=== PATIENT | male | born 1990 | race Caucasian/White ===

== ENCOUNTER 2018-12-21 19:54 | Emergency (ER) | payer MEDICARE, OTHER ==
[2018-12-21] MEDS ORDERED: DIAZEPAM 5 MG TABLET PO ONE (20:12)
[2018-12-21] MEDS ORDERED: ACETAMINOPHEN 325 MG TAB PO ONE (20:13)
--- NOTE | 2018-12-21 20:14 | Emergency Department Record ---
Anxiety - General Chief Complaint: Anxiety Stated Complaint: CHEST PAIN Time Seen by Provider: 12/21/18 20:03 Source: Patient Mode of Arrival: EMS Limitations: No limitations - History of Present Illness Initial Comments: The patient is here due to becoming very anxious today. He normally lives at a [facility] home and was visiting his grandmother but did not take any of his anxiety meds with him. He became very anxious due to issues at his [facility] home with a worker there. Due to not having his medicines he developed palpitations, anxiety and became very upset and called 911. The patient denies any AP, CP, SOB , HENDRICKS or fever. He is asking for Valium for his anxiety. The patient has a long hx of anxiety similar to this in the past. MD Complaint: Anxiety Onset/Timin -: Days(s) Symptoms: Chest pain Place: Home Previous History of Same: Yes Severity: Moderate Quality: Constant, Similar to prior episodes Provoking factors: Emotional stress, Other Improves With: Medication Worsens With: Nothing - Related Data Home Medications: Home Medications Medication Instructions Recorded Confirmed Last Taken Clonazepam [Klonopin] 0.5 mg PO DAILY PRN 12/21/18 12/21/18 Unknown Allergies/Adverse Reactions: Allergies Allergy/AdvReac Type Severity Reaction Status Date / Time lorazepam [From Ativan] Allergy Severe BEHAVIORAL Verified 08/12/16 17:28 CHANGES Penicillins Allergy Intermediate RASH Verified 08/12/16 17:28 lidocaine [From LidoPatch] Allergy RASH Verified 08/12/16 17:28 menthol [From LidoPatch] Allergy RASH Verified 08/12/16 17:28 divalproex sodium AdvReac Intermediate ABDOMINAL Verified 08/12/16 17:28 [From Depakote] PAIN Travel Screening - Travel/Exposure Within Last 30 Days Have you traveled within the last 30 days?: No Review of Systems Constitutional: Denies: Chills, Fever Eyes: Denies: Eye discharge ENT: Denies: Congestion Respiratory: Denies: Cough, Dyspnea Cardiovascular: Denies: Arrhythmia, Chest pain, Dyspnea on exertion Endocrine: Denies: Fatigue Gastrointestinal: Denies: Nausea Genitourinary: Denies: Dysuria Musculoskeletal: Denies: Arthralgia Skin: Denies: Bruising Psychiatric: Reports: Anxiety Past Medical History - SOCIAL HISTORY Smoking Status: Current every day smoker Alcohol Use: None Drug Use: None - RESPIRATORY Hx Respiratory Disorders: Yes Hx Asthma: Yes (as a child) - CARDIOVASCULAR Hx Cardio Disorders: No - NEURO Hx Neuro Disorders: Yes Hx Seizures: Yes (epileptic) - GI Hx GI Disorders: Yes Hx Pancreatitis: Yes - Hx Genitourinary Disorders: No - ENDOCRINE Hx Endocrine Disorders: No - MUSCULOSKELETAL Hx Musculoskeletal Disorders: No - PSYCH Hx Psych Problems: Yes Hx Anxiety: Yes Hx Behavior Problems: Yes Comment:: ptsd - HEMATOLOGY/ONCOLOGY Hx Hematology/Oncology Disorders: No Family Medical History Any Significant Family History?: Yes Hx Cancer: Grandparents Hx Diabetes: Father, Grandparents Hx Heart Disease: Mother, Grandparents Hx HTN: Grandparents Physical Exam - General General Appearance: Alert, Oriented x3, Cooperative, No acute distress - Head Head exam: Atraumatic, Normocephalic, Normal inspection - Eye Eye exam: Normal appearance, PERRL - ENT Throat exam: Normal inspection. negative: Tonsillar erythema, Tonsillar exudate - Neck Neck exam: Normal inspection, Full ROM. negative: Tenderness - Respiratory Respiratory exam: Normal lung sounds bilaterally. negative: Respiratory distress - Cardiovascular Cardiovascular Exam: Regular rate, Normal rhythm, Normal heart sounds. negative : Diastolic murmur, Systolic murmur - GI/Abdominal GI/Abdominal exam: Soft, Normal bowel sounds. negative: Tenderness - Extremities Extremities exam: Normal inspection, Full ROM, Normal capillary refill. negative: Tenderness - Back Back exam: Reports: Normal inspection - Neurological Neurological exam: Alert, Normal gait. negative: Abnormal gait, Motor sensory deficit Course Vital Signs 12/21/18 19:58 Pulse Rate [ 100 H Pulse Ox Probe] Respiratory 24 Rate Blood Pressure 149/80 [Left Arm] Pulse Ox 100 - Reevaluation(s) Reevaluation #1: The patient is doing much better at this time. He is very calm and cooperative and states his anxiety is now gone. He is ready for home. 12/21/18 20:50 Medical Decision Making - Data Complexity MDM Data: EKG Ordered and/or Reviewed - Lab Data Result diagrams: 12/21/18 19:35 12/21/18 19:35 - EKG Data -: EKG Interpreted by Me EKG: No Acute Changes Disposition Disposition: Discharge Clinical Impression: Anxiety Disposition: Home, Self-Care Condition: (2) Stable Instructions: Social Anxiety Disorder (ED) Additional Instructions: Please continue your regular medicines and please see your family doctor next week if not better. Return to the ER for any worsening symptoms. Forms: Patient Portal Access Time of Disposition: 20:50 Quality - Quality Measures Quality Measures: N/A - Blood Pressure Screening View Details: Yes Does Patient Have Any of the Following: No Blood Pressure Classification: Pre-Hypertensive BP Reading Systolic Measurement: 136 Diastolic Measurement: 78 Screening for High Blood Pressure: < Pre-Hypertensive BP, F/U Documented > [ G8950] Pre-Hypertensive Follow-up Interventions: Referral to alternative/primary care provider.
[2018-12-21 20:20] LABS: BASO % 0.2 % (0-6); EOS % 1.4 % (0-6); GRAN % 55.4 % (47-80); HEMATOCRIT 49.2 % (42.0-52.0); HEMOGLOBIN 16.5 gm/dl (14.0-18.0); LYMPH % 33.9 % (16-45); MEAN CELL VOLUME 88.5 fl (81-97); MEAN CORPUSCULAR HEMOGLOBIN 29.7 pg (27-33); MEAN CORPUSCULAR HGB CONC 33.5 g/dl (32-36); MONO % 9.1 % (0-9); PLATELET COUNT 346 K/uL (130-400); RED BLOOD COUNT 5.56 M/uL (4.40-5.70); RED CELL DISTRIBUTION WIDTH 15.4 % (11.5-14.5); WHITE BLOOD COUNT W/O DIFF 13.9 K/uL (4.2-12.2)
[2018-12-21 20:33] LABS: BLOOD UREA NITROGEN 5 mg/dL (6-20); CREATININE 0.7 mg/dL (0.7-1.2); EST GLOMERULAR FILTRATION RATE > 60 mL/min; TOTAL PROTEIN 8.4 g/dL (6.6-8.7)
[2018-12-21 20:35] LABS: GLUCOSE,RANDOM 108 mg/dL (74-109)
[2018-12-21 20:38] LABS: ALB/GLOB RATIO 1.5 (1.1-1.8); ALBUMIN 5.1 g/dL (4.0-5.0); ALKALINE PHOSPHATASE 131 U/L (40-129); ALT/SGPT 20 U/L (<41); AST/SGOT 20 U/L (10.0-50.0)
== END 2018-12-21 20:54 | disposition home or self-care (01) ==
LOC: ER 19:54
DX: F41.9 Anxiety disorder, unspecified (principal); F43.0 Acute stress reaction; F17.210 Nicotine dependence, cigarettes, uncomplicated
CPT/HCPCS: 99284 ×2; 85025; 80053; 84484; 93005; 93010; J3490

== ENCOUNTER 2019-01-20 13:29 | Emergency (ER) | payer MEDICARE, MEDICAID ==
[2019-01-20] MEDS ORDERED: DIAZEPAM 5 MG TABLET PO ONE (14:16)
[2019-01-20 14:34] LABS: BASO % 0.4 % (0-6); EOS % 1.3 % (0-6); GRAN % 64.4 % (47-80); HEMATOCRIT 44.3 % (42.0-52.0); HEMOGLOBIN 14.9 gm/dl (14.0-18.0); LYMPH % 24.7 % (16-45); MEAN CELL VOLUME 87.9 fl (81-97); MEAN CORPUSCULAR HEMOGLOBIN 29.6 pg (27-33); MEAN CORPUSCULAR HGB CONC 33.6 g/dl (32-36); MEAN PLATELET VOLUME 9.5 fl (7.4-10.4); MONO % 9.2 % (0-9); PLATELET COUNT 344 K/uL (130-400); RED BLOOD COUNT 5.04 M/uL (4.40-5.70); RED CELL DISTRIBUTION WIDTH 14.7 % (11.5-14.5); WHITE BLOOD COUNT W/O DIFF 9.7 K/uL (4.2-12.2)
[2019-01-20 14:39] LABS: BARBITURATE SCREEN URINE DETECTED; BENZODIAZEPINE SCREEN URINE DETECTED
[2019-01-20 14:40] LABS: AMPHETAMINE SCREEN URINE NOT DETECTED; COCAINE SCREEN URINE NOT DETECTED; METHADONE SCREEN URINE NOT DETECTED; METHAMPHETAMINE SCREEN NOT DETECTED; OPIATE SCREEN URINE NOT DETECTED; OXYCODONE SCREEN URINE NOT DETECTED; PHENCYCLIDINE SCREEN URINE NOT DETECTED; PROPOXYPHENE SCREEN URINE NOT DETECTED; THC SCREEN URINE NOT DETECTED; TRICYCLIC ANTIDEPRESSANT SCRN NOT DETECTED; URINE APPEARANCE CLEAR; URINE BILIRUBIN NEGATIVE (NEGATIVE); URINE COLOR YELLOW; URINE GLUCOSE (UA) NEGATIVE (NEGATIVE); URINE KETONE NEGATIVE (NEGATIVE)
[2019-01-20 14:41] LABS: URINE BLOOD NEGATIVE (NEGATIVE); URINE LEUKOCYTE ESTERASE NEGATIVE (NEGATIVE); URINE NITRITE NEGATIVE (NEGATIVE); URINE PROTEIN NEGATIVE (NEGATIVE); URINE UROBILINOGEN 0.2 E.U./dL (0.20 - 1.00)
[2019-01-20 14:47] LABS: BLOOD UREA NITROGEN 5 mg/dL (6-20); CREATININE 0.7 mg/dL (0.7-1.2); EST GLOMERULAR FILTRATION RATE > 60 mL/min
[2019-01-20 14:49] LABS: GLUCOSE,RANDOM 91 mg/dL (74-109)
[2019-01-20 14:52] LABS: ALB/GLOB RATIO 1.7 (1.1-1.8); ALBUMIN 4.4 g/dL (4.0-5.0); ALKALINE PHOSPHATASE 114 U/L (40-129); ALT/SGPT 16 U/L (<41); AST/SGOT 15 U/L (10.0-50.0); CREATINE PHOSPHOKINASE 87 U/L (39-308)
[2019-01-20 14:54] LABS: CKMB < 1.0 ng/mL (<6.73)
--- NOTE | 2019-01-20 15:03 | Emergency Department Record ---
Anxiety - General Chief Complaint: Panic attack Stated Complaint: PANIC ATTACK Time Seen by Provider: 01/20/19 14:07 Source: Patient Mode of Arrival: Stretcher Limitations: No limitations - History of Present Illness Initial Comments: pt brought in via ems for possible seizure. pt states hes having cp. poor historian Complaint: Other Onset/Timin -: Hour(s) Symptoms: Chest pain, Dyspnea, Palpitations Place: Other Previous History of Same: Yes Quality: Similar to prior episodes Provoking factors: Emotional stress Improves With: Nothing Worsens With: Thinking about event Associated symptoms: Chest pain, Nausea/vomiting, Palpitations, Shortness of breath - Related Data Allergies/Adverse Reactions: Allergies Allergy/AdvReac Type Severity Reaction Status Date / Time lorazepam [From Ativan] Allergy Severe BEHAVIORAL Verified 01/20/19 13:43 CHANGES Penicillins Allergy Intermediate RASH Verified 01/20/19 13:43 lidocaine [From LidoPatch] Allergy RASH Verified 01/20/19 13:43 menthol [From LidoPatch] Allergy RASH Verified 01/20/19 13:43 divalproex sodium AdvReac Intermediate ABDOMINAL Verified 01/20/19 13:43 [From Depakote] PAIN Travel Screening - Travel/Exposure Within Last 30 Days Have you traveled within the last 30 days?: No - Travel/Exposure Within Last Year Have you traveled outside the [place] in the last year?: No - Additonal Travel Details Have you been exposed to anyone with a communicable illness?: No - Travel Symptoms Symptom Screening: None Review of Systems Reviewed: No additional complaints except as noted below Constitutional: Reports: As per HPI. Denies: Chills, Fever, Malaise, Night sweats, Weakness, Weight change Eyes: Reports: As per HPI. Denies: Eye discharge, Eye pain, Photophobia, Vision change ENT: Reports: As per HPI. Denies: Congestion, Dental pain, Ear pain, Epistaxis , Hearing loss, Throat pain Respiratory: Reports: As per HPI. Denies: Cough, Dyspnea, Hemoptysis, Stridor, Wheezes Cardiovascular: Reports: As per HPI. Denies: Arrhythmia, Chest pain, Dyspnea on exertion, Edema, Murmurs, Orthopnea, Palpitations, Paroxysmal nocturnal dyspnea, Rheumatic Fever, Syncope Endocrine: Reports: As per HPI. Denies: Fatigue, Heat or cold intolerance, Polydipsia, Polyuria Gastrointestinal: Reports: As per HPI. Denies: Abdominal pain, Constipation, Diarrhea, Hematemesis, Hematochezia, Melena, Nausea, Vomiting Genitourinary: Reports: As per HPI. Denies: Dysuria, Frequency, Hematuria, Incontinence, Retention, Testicular pain, Testicular mass, Urgency Musculoskeletal: Reports: As per HPI. Denies: Arthralgia, Back pain, Gout, Joint swelling, Myalgia, Neck pain Skin: Reports: As per HPI. Denies: Bruising, Change in color, Change in hair/ nails, Lesions, Pruritus, Rash Neurological: Reports: As per HPI. Denies: Abnormal gait, Confusion, Headache, Numbness, Paresthesias, Seizure, Tingling, Tremors, Vertigo, Weakness Psychiatric: Reports: As per HPI, Anxiety. Denies: Auditory hallucinations, Depression, Homicidal thoughts, Suicidal thoughts, Visual hallucinations Hematological/Lymphatic: Reports: As per HPI. Denies: Anemia, Blood Clots, Easy bleeding, Easy bruising, Swollen glands Past Medical History - SOCIAL HISTORY Smoking Status: Current every day smoker Alcohol Use: None Drug Use: None - RESPIRATORY Hx Respiratory Disorders: Yes Hx Asthma: Yes (as a child) - CARDIOVASCULAR Hx Cardio Disorders: No - NEURO Hx Neuro Disorders: Yes Hx Seizures: Yes (epileptic) - GI Hx GI Disorders: Yes Hx Pancreatitis: Yes - Hx Genitourinary Disorders: No - ENDOCRINE Hx Endocrine Disorders: No - MUSCULOSKELETAL Hx Musculoskeletal Disorders: No - PSYCH Hx Psych Problems: Yes Hx Anxiety: Yes Hx Behavior Problems: Yes Comment:: ptsd - HEMATOLOGY/ONCOLOGY Hx Hematology/Oncology Disorders: No Family Medical History Any Significant Family History?: Yes Hx Cancer: Grandparents Hx Diabetes: Father, Grandparents Hx Heart Disease: Mother, Grandparents Hx HTN: Grandparents Physical Exam - General General Appearance: Alert, Oriented x3, Cooperative, Mild distress - Head Head exam: Normal inspection - Eye Eye exam: Normal appearance, PERRL, EOMI Pupils: Normal accommodation - ENT ENT exam: Normal exam, Mucous membranes moist, Normal external ear exam, Normal orophraynx Ear exam: Normal external inspection. negative: External canal tenderness Nasal Exam: Normal inspection. negative: Discharge, Sinus tenderness Mouth exam: Normal external inspection, Tongue normal Teeth exam: Normal inspection. negative: Dental caries Throat exam: Normal inspection. negative: Tonsillar erythema, Tonsillar exudate - Neck Neck exam: Normal inspection, Full ROM. negative: Tenderness - Respiratory Respiratory exam: Normal lung sounds bilaterally. negative: Respiratory distress - Cardiovascular Cardiovascular Exam: Regular rate, Normal rhythm, Normal heart sounds - GI/Abdominal GI/Abdominal exam: Soft, Normal bowel sounds. negative: Tenderness - Rectal Rectal exam: Deferred - exam: Deferred - Extremities Extremities exam: Normal inspection, Full ROM, Normal capillary refill. negative: Tenderness - Back Back exam: Reports: Normal inspection, Full ROM. Denies: Muscle spasm, Rash noted, Tenderness - Neurological Neurological exam: Alert, Normal gait, Oriented X3, Reflexes normal - Psychiatric Psychiatric exam: Normal affect, Normal mood - Skin Skin exam: Dry, Intact, Normal color, Warm Course Vital Signs 01/20/19 13:32 Temperature 97.7 F Pulse Rate 81 Respiratory 18 Rate Blood Pressure 138/85 Pulse Ox 95 - Reevaluation(s) Reevaluation #1: 01/20/19 16:28 pt feels better Medical Decision Making - Lab Data Result diagrams: 01/20/19 14:23 01/20/19 14:23 Lab Results 01/20/19 01/20/19 01/20/19 Range/Units 14:23 14:23 14:23 WBC 9.7 (4.2-12.2) K/uL RBC 5.04 (4.40-5.70) M/uL Hgb 14.9 (14.0-18.0) gm/dl Hct 44.3 (42.0-52.0) % MCV 87.9 (81-97) fl MCH 29.6 (27-33) pg MCHC 33.6 (32-36) g/dl RDW 14.7 H (11.5-14.5) % Plt Count 344 (130-400) K/uL MPV 9.5 (7.4-10.4) fl Gran % 64.4 (47-80) % Lymphocytes % 24.7 (16-45) % Monocytes % 9.2 H (0-9) % Eosinophils % 1.3 (0-6) % Basophils % 0.4 (0-6) % Sodium 137 (136-145) mmol/L Potassium 3.8 (3.4-4.5) mmol/L Chloride 102 (98-107) mmol/L Carbon Dioxide 23.0 (22-29) mmol/L Anion Gap 12.0 (7-16) BUN 5 L (6-20) mg/dL Creatinine 0.7 (0.7-1.2) mg/dL Estimated GFR > 60 mL/min Random Glucose 91 (74-109) mg/dL Calcium 9.4 (8.6-10.0) mg/dL Total Bilirubin 0.20 (0.2-1.0) mg/dL AST 15 (10.0-50.0) U/L ALT 16 (<41) U/L Alkaline Phosphatase 114 (40-129) U/L Creatine Kinase 87 (39-308) U/L CK-MB (CK-2) < 1.0 (<6.73) ng/mL Troponin T < 0.010 (0-0.010) ng/mL Total Protein 7.0 (6.6-8.7) g/dL Albumin 4.4 (4.0-5.0) g/dL Globulin 2.6 (1.4-4.8) gm/dL Albumin/Globulin Ratio 1.7 (1.1-1.8) Urine Color Yellow Urine Appearance Clear Urine pH 8.0 (5.0-8.0) Ur Specific [place] 1.010 (1.002-1.030) Urine Protein Negative (NEGATIVE) Urine Glucose (UA) Negative (NEGATIVE) Urine Ketones Negative (NEGATIVE) Urine Blood Negative (NEGATIVE) Urine Nitrite Negative (NEGATIVE) Urine Bilirubin Negative (NEGATIVE) Urine Urobilinogen 0.2 (0.20 - 1.00) E.U./dL Ur Leukocyte Esterase Negative (NEGATIVE) Urine Opiates Screen Ur Oxycodone Screen Urine Methadone Screen Ur Propoxyphene Screen Ur Barbituates Screen Ur Tricyclics Screen Ur Phencyclidine Scrn Ur Amphetamine Screen U Methamphetamines Scrn U Benzodiazepines Scrn Urine Cocaine Screen Urine Cannabis Screen 01/20/19 Range/Units 14:23 WBC (4.2-12.2) K/uL RBC (4.40-5.70) M/uL Hgb (14.0-18.0) gm/dl Hct (42.0-52.0) % MCV (81-97) fl MCH (27-33) pg MCHC (32-36) g/dl RDW (11.5-14.5) % Plt Count (130-400) K/uL MPV (7.4-10.4) fl Gran % (47-80) % Lymphocytes % (16-45) % Monocytes % (0-9) % Eosinophils % (0-6) % Basophils % (0-6) % Sodium (136-145) mmol/L Potassium (3.4-4.5) mmol/L Chloride (98-107) mmol/L Carbon Dioxide (22-29) mmol/L Anion Gap (7-16) BUN (6-20) mg/dL Creatinine (0.7-1.2) mg/dL Estimated GFR mL/min Random Glucose (74-109) mg/dL Calcium (8.6-10.0) mg/dL Total Bilirubin (0.2-1.0) mg/dL AST (10.0-50.0) U/L ALT (<41) U/L Alkaline Phosphatase (40-129) U/L Creatine Kinase (39-308) U/L CK-MB (CK-2) (<6.73) ng/mL Troponin T (0-0.010) ng/mL Total Protein (6.6-8.7) g/dL Albumin (4.0-5.0) g/dL Globulin (1.4-4.8) gm/dL Albumin/Globulin Ratio (1.1-1.8) Urine Color Urine Appearance Urine pH (5.0-8.0) Ur Specific [place] (1.002-1.030) Urine Protein (NEGATIVE) Urine Glucose (UA) (NEGATIVE) Urine Ketones (NEGATIVE) Urine Blood (NEGATIVE) Urine Nitrite (NEGATIVE) Urine Bilirubin (NEGATIVE) Urine Urobilinogen (0.20 - 1.00) E.U./dL Ur Leukocyte Esterase (NEGATIVE) Urine Opiates Screen Not detected Ur Oxycodone Screen Not detected Urine Methadone Screen Not detected Ur Propoxyphene Screen Not detected Ur Barbituates Screen Detected Ur Tricyclics Screen Not detected Ur Phencyclidine Scrn Not detected Ur Amphetamine Screen Not detected U Methamphetamines Scrn Not detected U Benzodiazepines Scrn Detected Urine Cocaine Screen Not detected Urine Cannabis Screen Not detected Disposition Disposition: Discharge Clinical Impression: Anxiety Chest pain Qualifiers: Chest pain type: unspecified Qualified Code(s): R07.9 - Chest pain, unspecified Disposition: Home, Self-Care Condition: (1) Good Instructions: Generalized Anxiety Disorder (ED), Chest Wall Pain (ED) Additional Instructions: follow up with family doctor. return sooner if worse Forms: Patient Portal Access Quality - Quality Measures Quality Measures: N/A - Blood Pressure Screening Does Patient Have Any of the Following: No Blood Pressure Classification: Pre-Hypertensive BP Reading Systolic Measurement: 138 Diastolic Measurement: 85 Screening for High Blood Pressure: < Pre-Hypertensive BP, F/U Documented > [ G8950] Pre-Hypertensive Follow-up Interventions: Follow-up with rescreen every year.
--- NOTE | 2019-01-22 12:41 | RADIOLOGY REPORT ---
EXAM: CHEST, TWO VIEWS HISTORY: PANIC ATTACK. TECHNIQUE: PA and lateral views of the chest were obtained. FINDINGS: The lungs are clear. The heart size and pulmonary vascularity are normal. IMPRESSION: NORMAL CHEST. JOB NUMBER: [id number] MTDD
== END 2019-01-20 17:12 | disposition home or self-care (01) ==
LOC: ER 13:29
DX: R07.9 Chest pain, unspecified (principal); R11.2 Nausea with vomiting, unspecified; R06.02 Shortness of breath; R41.1 Anterograde amnesia; F17.210 Nicotine dependence, cigarettes, uncomplicated
CPT/HCPCS: 71046; 80053; 80305; 81003; 82550; 82553; 84484; 85025; 93005; 93010; 99284

== ENCOUNTER 2019-07-25 05:19 | Emergency (ER) | payer MEDICARE, MEDICAID ==
--- NOTE | 2019-07-25 06:02 | Emergency Department Record ---
History of Present Illness - General Chief complaint: Pain Stated complaint: FINGER INJURY Time Seen by Provider: 07/25/19 05:58 Source: Patient Mode of Arrival: Ambulatory Limitations: No limitations - History of Present Illness Initial comments: 28 yo male presents to ED for evaluation of pain and swelling to the left little finger that began following injury yesterday. Patient reports that he fell after "taking too much of my seizure medication" resulting in injury. Patient reports increasing swelling and pain following injury. Patient denies other injury on examination, denies redness, warmth, or fever symptoms. MD Complaint: Extremity pain, Extremity swelling Onset/Timin -: Days(s) Location: Left History of Same: No Radiation: None Severity scale (1-10): 8 Quality: Aching Improves with: Nothing Worsens with: Nothing - Related Data Previous Rx's Medication Instructions Recorded Ibuprofen 800 mg PO Q6H PRN #30 tablet 07/25/19 Allergies Allergy/AdvReac Type Severity Reaction Status Date / Time lorazepam [From Ativan] Allergy Severe BEHAVIORAL Verified 01/20/19 13:43 CHANGES Penicillins Allergy Intermediate RASH Verified 01/20/19 13:43 lidocaine [From LidoPatch] Allergy RASH Verified 01/20/19 13:43 menthol [From LidoPatch] Allergy RASH Verified 01/20/19 13:43 divalproex sodium AdvReac Intermediate ABDOMINAL Verified 01/20/19 13:43 [From Depakote] PAIN Travel Screening - Travel/Exposure Within Last 30 Days Have you traveled within the last 30 days?: No - Travel/Exposure Within Last Year Have you traveled outside the [place] in the last year?: No - Additonal Travel Details Have you been exposed to anyone with a communicable illness?: No - Travel Symptoms Symptom Screening: None Review of Systems Constitutional: Denies: Chills, Fever, Malaise, Night sweats Eyes: Denies: Eye discharge, Eye pain ENT: Denies: Congestion, Ear pain, Epistaxis Respiratory: Denies: Cough, Dyspnea Cardiovascular: Denies: Chest pain, Dyspnea on exertion Endocrine: Denies: Fatigue, Heat or cold intolerance Gastrointestinal: Denies: Abdominal pain, Nausea, Vomiting Genitourinary: Denies: Incontinence, Retention Musculoskeletal: Reports: Arthralgia. Denies: Back pain, Gout, Joint swelling Skin: Denies: Bruising, Change in color Neurological: Denies: Abnormal gait, Confusion Psychiatric: Denies: Anxiety Hematological/Lymphatic: Denies: Anemia, Blood Clots Past Medical History - SOCIAL HISTORY Smoking Status: Current every day smoker Alcohol Use: None Drug Use: None - RESPIRATORY Hx Respiratory Disorders: Yes Hx Asthma: Yes (as a child) - CARDIOVASCULAR Hx Cardio Disorders: No - NEURO Hx Neuro Disorders: Yes Hx Seizures: Yes (epileptic) - GI Hx GI Disorders: Yes Hx Pancreatitis: Yes - Hx Genitourinary Disorders: No - ENDOCRINE Hx Endocrine Disorders: No - MUSCULOSKELETAL Hx Musculoskeletal Disorders: No - PSYCH Hx Psych Problems: Yes Hx Anxiety: Yes Hx Behavior Problems: Yes Comment:: ptsd - HEMATOLOGY/ONCOLOGY Hx Hematology/Oncology Disorders: No Family Medical History Any Significant Family History?: Yes Hx Cancer: Grandparents Hx Diabetes: Father, Grandparents Hx Heart Disease: Mother, Grandparents Hx HTN: Grandparents Physical Exam - General General Appearance: Alert, Oriented x3, Cooperative, No acute distress, Other (Patient is on mobile phone, well appearing on examination in no distress) Limitations: No limitations - Head Head exam: Atraumatic, Normocephalic, Normal inspection Head exam detail: negative: Abrasion, Contusion, Martinez's sign, General tenderness, Hematoma, Laceration - Eye Eye exam: Normal appearance. negative: Conjunctival injection, Periorbital swelling, Periorbital tenderness, Scleral icterus - ENT Ear exam: negative: Auricular hematoma, Auricular trauma Nasal Exam: negative: Active bleeding, Discharge, Dried blood, Foreign body Mouth exam: negative: Drooling, Laceration, Muffled voice, Tongue elevation - Neck Neck exam: Normal inspection. negative: Meningismus, Tenderness - Respiratory Respiratory exam: Normal lung sounds bilaterally. negative: Respiratory distress, Rhonchi, Stridor, Wheezes - Cardiovascular Cardiovascular Exam: Regular rate, Normal rhythm, Normal heart sounds - GI/Abdominal GI/Abdominal exam: Soft. negative: Distended, Rebound, Rigid, Tenderness - Rectal Rectal exam: Deferred - exam: Deferred - Extremities Extremities exam: Tenderness, Other (STS to the little finger diffusely, not warm to palpation, no erythema, no evidence for infection. Digit is held in slight flexion due to swelling. Strong distal rdial pulse, no pain with movement of the hand.). negative: Calf tenderness, Pedal edema - Back Back exam: Denies: CVA tenderness (R), CVA tenderness (L) - Neurological Neurological exam: Alert, Normal gait, Oriented X3 - Psychiatric Psychiatric exam: Normal affect, Normal mood - Skin Skin exam: Normal color. negative: Abrasion Type of lesion: negative: abrasion Course Vital Signs 07/25/19 05:25 Temperature 97.7 F Pulse Rate [ 71 Pulse Ox Probe] Respiratory 20 Rate Blood Pressure 120/81 [Left Arm] Pulse Ox 100 - Reevaluation(s) Reevaluation #1: 07/25/19 06:09 Left little digit: Non-displaced fracture of the distal aspect of the middle phalanx extending to the joint space Patient was updated on his radiograph results, offered Ibuprofen 800 mg for his pain which patient refused in the ED. Nursing staff attempted to place the finger into splint, patient refused "without getting something stronger for pain". Patient has been on his mobile phone throughout the duration of the examination in no significant pain, there is significant concern over potential OD if prescribed narcotic pain medication given recent admitted overdose of his seizure medication and previous visits for mental health evaluations and overdose. Will have the patient follow-up with Dr. Bishop next week for further evaluation. Disposition Disposition: Discharge Clinical Impression: Finger fracture, left Qualifiers: Encounter type: initial encounter Finger: little finger Fracture type: closed Phalanx: middle Fracture alignment: nondisplaced Qualified Code(s): S62.657A - Nondisplaced fracture of middle phalanx of left little finger, initial encounter for closed fracture Disposition: Home, Self-Care Condition: (2) Stable Instructions: Finger Fracture (ED) Additional Instructions: Return to ED if your symptoms worsen or if you have any concerns. Ice, Ibuprofen as directed. Leave splint in place until you follow-up with Dr. Bishop. Follow-up with Dr. Bishop in 3-5 days as directed. Prescriptions: Ibuprofen 800 mg PO Q6H PRN #30 tablet PRN Reason: Pain - Mod To Severe (5-10) Referrals: Joey Bishop [DOCTOR OF OSTEOPATH] - [facility] [Provider Group] Forms: Patient Portal Access Time of Disposition: 05:59 Quality - Quality Measures Quality Measures: N/A - Blood Pressure Screening Does Patient Have Any of the Following: No Blood Pressure Classification: Pre-Hypertensive BP Reading Systolic Measurement: 120 Diastolic Measurement: 81 Screening for High Blood Pressure: < Pre-Hypertensive BP, F/U Documented > [G8950] Pre-Hypertensive Follow-up Interventions: Referral to alternative/primary care provider.
--- NOTE | 2019-07-26 08:22 | RADIOLOGY REPORT ---
DATE: 07/25/2019 at 0546. EXAM: THREE VIEWS OF THE FIFTH DIGIT, LEFT HAND. HISTORY: PAIN AND SWELLING POST FALL. TECHNIQUE: Three views of the fifth digit of the left hand. COMPARISON: None. FINDINGS: There is normal bone mineralization. There is a questionable obliquely oriented fracture involving the proximal two-thirds of the fifth middle phalanx with questionable extension to the proximal articular surface. There is associated diffuse soft tissue swelling of the fifth digit. No other osseous evidence of fracture nor dislocation. IMPRESSION: NONDISPLACED OBLIQUE FRACTURE OF THE FIFTH MIDDLE PHALANX QUESTIONED WITH POSSIBLE EXTENSION TO THE PROXIMAL ARTICULAR SURFACE. SOFT TISSUE SWELLING. Job Number: [id number] MTDD
== END 2019-07-25 06:21 | disposition home or self-care (01) ==
LOC: ER 05:19
DX: S62.657A Nondisplaced fracture of middle phalanx of left little finger, initial encounter for closed fracture (principal); W19.XXXA Unspecified fall, initial encounter; F17.290 Nicotine dependence, other tobacco product, uncomplicated; G40.909 Epilepsy, unspecified, not intractable, without status epilepticus
CPT/HCPCS: 73140; 99283; 99284